=== PATIENT | female | born 1990 | race Caucasian/White ===

== ENCOUNTER → 2016-11-29 | Outpatient (CLI) | payer BC ==
[~2016-11-29] MED LIST: HMLI7525 SC; IBUP-1050 PO; INSU1INJ SC; PREN1TAB29
== END | disposition home or self-care (01) ==
LOC: C.LAB1850 17:16
PROVIDERS: ATTEND Obstetrics & Gynecology
DX: Z32.01 Encounter for pregnancy test, result positive (principal)

== ENCOUNTER → 2016-12-01 | Outpatient (CLI) | payer BC | END | disposition home or self-care (01) | LOC: C.LAB 17:51 | PROVIDERS: ATTEND Obstetrics & Gynecology | DX: O09.00 Supervision of pregnancy with history of infertility, unspecified trimester (principal) ==

== ENCOUNTER → 2016-12-17 | Outpatient (CLI) | payer BC ==
[2016-12-17 14:42] LABS: URINE APPEARANCE TURBID (CLEAR); URINE BILIRUBIN NEG (NEG); URINE COLOR DK YELLOW; URINE EPITHELIAL CELL AUTO >30 /lpf (0-5); URINE NITRITE NEG (NEG); URINE SPECIFIC GRAVITY 1.031 (1.000-1.030); UROBILINOGEN NEG (NEG)
[2016-12-17 14:45] LABS: MANUAL MICROSCOPIC REQUIRED? NO; REVIEW REQ? NO
== END | disposition home or self-care (01) ==
LOC: C.LABSPEC 13:37
PROVIDERS: ATTEND Obstetrics & Gynecology
DX: O24.419 Gestational diabetes mellitus in pregnancy, unspecified control (principal); Z3A.00 Weeks of gestation of pregnancy not specified

== ENCOUNTER → 2016-12-24 | Outpatient (CLI) | payer BC | END | disposition home or self-care (01) | LOC: C.PAPS 16:42 | PROVIDERS: ATTEND Obstetrics & Gynecology | DX: Z01.419 Encounter for gynecological examination (general) (routine) without abnormal findings (principal) ==

== ENCOUNTER → 2016-12-24 | Outpatient (CLI) | payer BC ==
[2016-12-28 09:32] LABS: CHLAMYDIA TRACH RNA*** NOT DETECTED (NOT DETECTED); GC (NEIS GONORRHOEAE)RNA** NOT DETECTED (NOT DETECTED)
== END | disposition home or self-care (01) ==
LOC: C.LABSPEC 10:16
PROVIDERS: ATTEND Obstetrics & Gynecology
DX: O09.00 Supervision of pregnancy with history of infertility, unspecified trimester (principal); Z3A.00 Weeks of gestation of pregnancy not specified

== ENCOUNTER → 2017-01-07 | Outpatient (CLI) | payer BC ==
[2017-01-07 09:47] LABS: BASO % 0.1 %; BASO ABS # 0.01 K/uL (0-0.2); COMPLETE YES; EOS % 0.1 %; IG% 0.2 %; LYMPH % 33.4 %; LYMPH ABS # 2.95 K/uL (1.2-3.4); MEAN CORPUSCULAR HEMOGLOBIN 27.4 pg (25-34); MEAN CORPUSCULAR HGB CONC 34.3 g/dl (32-36); MEAN PLATELET VOLUME 10.3 fL (7.4-10.4); MONO % 6.1 %; NEUT % 60.1 %; PLATELET COUNT 134 K/uL (130-400); WHITE BLOOD COUNT 8.84 K/uL (4.8-10.8)
== END | disposition home or self-care (01) ==
LOC: C.LAB1850 08:09
PROVIDERS: ATTEND Obstetrics & Gynecology
DX: O09.00 Supervision of pregnancy with history of infertility, unspecified trimester (principal)

== ENCOUNTER → 2017-03-28 | Outpatient (CLI) | payer BC ==
[2017-03-28 16:45] LABS: URINE APPEARANCE CLOUDY (CLEAR); URINE BILIRUBIN NEG (NEG); URINE COLOR DK YELLOW; URINE NITRITE NEG (NEG); URINE PH 6.5 (4.5-7.5); URINE SPECIFIC GRAVITY 1.027 (1.000-1.030); UROBILINOGEN NEG (NEG)
[2017-03-28 16:47] LABS: MANUAL MICROSCOPIC REQUIRED? NO; REVIEW REQ? YES
== END | disposition home or self-care (01) ==
LOC: C.LAB1850 15:57
PROVIDERS: ATTEND Obstetrics & Gynecology
DX: R39.9 Unspecified symptoms and signs involving the genitourinary system (principal)

== ENCOUNTER → 2017-05-13 | Outpatient (CLI) | payer BC ==
[2017-05-13 16:32] LABS: HEMATOCRIT 37.6 % (37-47)
[2017-05-13 16:40] LABS: URINE APPEARANCE CLEAR (CLEAR); URINE BILIRUBIN NEG (NEG); URINE COLOR DK YELLOW; URINE EPITHELIAL CELL AUTO >30 /lpf (0-5); URINE NITRITE NEG (NEG); URINE PH 6.5 (4.5-7.5); URINE SPECIFIC GRAVITY 1.023 (1.000-1.030); UROBILINOGEN NEG (NEG)
[2017-05-13 16:47] LABS: MANUAL MICROSCOPIC REQUIRED? NO; REVIEW REQ? NO
== END | disposition home or self-care (01) ==
LOC: C.LAB1850 15:27
PROVIDERS: ATTEND Obstetrics & Gynecology
DX: Z34.82 Encounter for supervision of other normal pregnancy, second trimester (principal)

== ENCOUNTER → 2017-07-08 | Outpatient (CLI) | payer BC | END | disposition home or self-care (01) | LOC: C.LABSPEC 10:58 | PROVIDERS: ATTEND Obstetrics & Gynecology | DX: O24.410 Gestational diabetes mellitus in pregnancy, diet controlled (principal) ==

== ENCOUNTER 2017-07-10 02:05 | Outpatient (CLI) | payer BC ==
[~2017-07-10] VITALS: Ht 165.1 cm; Wt 127.3 kg
[~2017-07-10 02:05] MED LIST changes: -HMLI7525 SC; -INSU1INJ SC; -PREN1TAB29
[2017-07-10 03:12] VITALS: Ht 165.1 cm; Wt 127.3 kg
[2017-07-10] MEDS ORDERED: PREN1TAB29 (03:13)
[2017-07-10] MEDS ORDERED: HMLI7525 SC (03:17)
[2017-07-10] MEDS ORDERED: INSU1INJ SC (03:17)
== END 2017-07-10 04:12 | disposition home or self-care (01) ==
LOC: C.LD 02:05 → C.OPB 02:05
PROVIDERS: ATTEND Obstetrics & Gynecology
DX: O26.893 Other specified pregnancy related conditions, third trimester (principal); R10.9 Unspecified abdominal pain; Z3A.36 36 weeks gestation of pregnancy

== ENCOUNTER → 2017-07-15 | Outpatient (CLI) | payer BC ==
[~2017-07-15] MED LIST changes: +HMLI7525 SC; -IBUP-1050 PO; +INSU1INJ SC; +PREN1TAB29
[2017-07-15 10:38] LABS: CHOLESTEROL/HDL RATIO 3.8
== END | disposition home or self-care (01) ==
LOC: C.LAB1850 09:02
PROVIDERS: ATTEND Nurse Practitioner
DX: Z13.220 Encounter for screening for lipoid disorders (principal)

== ENCOUNTER 2017-07-29 11:33 | Inpatient (IN) | payer BC ==
[~2017-07-29] VITALS: Ht 165.1 cm; Wt 129.5 kg
[2017-07-29] MEDS ORDERED: SODIUM CHLORIDE 0.9% 1000ML 1,000 ML IV SCH (11:39)
[2017-07-29] MEDS ORDERED: LACTATED RINGER'S 1000ML 1,000 ML IV PRN (11:39)
[2017-07-29] MEDS ORDERED: DEXTROSE 50% 50 ML SYR IV PRN ×2 (11:45→12:15)
[2017-07-29] MEDS ORDERED: LACTATED RINGER'S 1000ML 500 ML IV PRN ×2 (11:47→20:50)
[2017-07-29] MEDS ORDERED: LABETALOL HCL IV 5 MG/ML 20ML IV SCH (12:00)
[2017-07-29] MEDS ORDERED: OXYTOCIN 30 UNITS/500ML NSS IV PRN (12:00)
[2017-07-29 12:14] LABS: HEMATOCRIT 37.3 % (37-47); MEAN CELL VOLUME 81.3 fL (80-100); MEAN CORPUSCULAR HEMOGLOBIN 27.2 pg (25-34); MEAN CORPUSCULAR HGB CONC 33.5 g/dl (32-36); MEAN PLATELET VOLUME 11.5 fL (7.4-10.4); PLATELET COUNT 135 K/uL (130-400); RED BLOOD COUNT 4.59 M/uL (4.2-5.4); WHITE BLOOD COUNT 10.15 K/uL (4.8-10.8)
[2017-07-29] MEDS ORDERED: GLUCOSE 40% GEL 15 GM TUBE PO PRN (12:15)
[2017-07-29] MEDS ORDERED: GLUCAGON FOR INJ 1 MG VIAL SQ PRN (12:15)
[2017-07-29] MEDS ORDERED: GLUCOSE 10 TABS/TUBE PO PRN (12:15)
[2017-07-29] MEDS ORDERED: INSULIN REGULAR 250 UNITS in SODIUM CHLORIDE 0.9% 250ML 250 ML IV SCH (12:30)
[2017-07-29 12:42] LABS: ALT/SGPT 11 U/L (12-78); BLOOD UREA NITROGEN 7 mg/dl (7-18); CALCIUM 8.9 mg/dl (8.5-10.1); CARBON DIOXIDE 22 mmol/L (21-32); CHLORIDE 107 mmol/L (98-107); CREATININE 0.53 mg/dl (0.60-1.20); GLUCOSE 82 mg/dl (70-99); SODIUM 138 mmol/L (136-145)
[2017-07-29 12:45] LABS: ALB/GLOB RATIO 0.7 (0.9-2); ALKALINE PHOSPHATASE 154 U/L (45-117); AST/SGOT 10 U/L (15-37)
[2017-07-29] MEDS ORDERED: LABETALOL HCL IV 5 MG/ML 20ML IV PRN (12:45)
[2017-07-29] MEDS: DEXTROSE 5% 1000ML 1,000 ML IV SCH ×2 (12:58→23:43)
[2017-07-29] MEDS ORDERED: MAGNESIUM SULFATE 4GM / WTR 100ML IV ONE (13:15)
[2017-07-29] MEDS ORDERED: NURSING VERBAL MED ORDER ONE (13:15)
[2017-07-29] MEDS: LACTATED RINGER'S 1000ML 1,000 ML IV SCH ×2 (13:25→17:23)
[2017-07-29] MEDS ORDERED: LABETALOL HCL IV 5 MG/ML 20ML IV STA (13:36)
[2017-07-29] MEDS: MAGNESIUM SULFATE / WTR 1,000 ML IV SCH (13:44)
[2017-07-29 14:57] VITALS: Ht 165.1 cm; Wt 129.5 kg
[2017-07-29] MEDS ORDERED: INFLUENZA VIRUS QUAD VACCINE 0.5 ML SYR IM. ONE (15:45)
[2017-07-29] MEDS ORDERED: INFLUENZA ADMINISTRATION CHARGE ONE (15:45)
[2017-07-29 18:32] LABS: HEMATOCRIT 37.5 % (37-47); IG% 0.4 %; LYMPH % 25.4 %; LYMPH ABS # 2.79 K/uL (1.2-3.4); MEAN CELL VOLUME 81.2 fL (80-100); MEAN CORPUSCULAR HEMOGLOBIN 26.8 pg (25-34); MONO % 5.3 %; NEUT % 68.9 %; PLATELET COUNT 139 K/uL (130-400); RED BLOOD COUNT 4.62 M/uL (4.2-5.4); WHITE BLOOD COUNT 10.99 K/uL (4.8-10.8)
[2017-07-29 18:34] LABS: COMPLETE YES; MEAN CORPUSCULAR HGB CONC 33.1 g/dl (32-36)
[2017-07-29 19:04] LABS: ALB/GLOB RATIO 0.6 (0.9-2); BUN/CREATININE RATIO 10.5 (10-20); CALCIUM 8.6 mg/dl (8.5-10.1); CREATININE 0.55 mg/dl (0.60-1.20); MAGNESIUM THERAPEUTIC(L&DONLY) 3.7 mg/dl (1.8-2.4); POTASSIUM 3.6 mmol/L (3.5-5.1); URIC ACID 6.5 mg/dl (2.6-7.2)
[2017-07-29] MEDS ORDERED: FENTANYL 2MCG/ML ROPIV 1.25MG/ML 100ML BAG EPI ONE (20:15)
[2017-07-29] MEDS ORDERED: FENTANYL CITRATE INJ 50 MCG/1 ML 2 ML VIAL ONE (20:15)
[2017-07-29] MEDS ORDERED: EpHEDrine SULFATE INJ 50 MG/ML AMP ONE (20:15)
[2017-07-29] MEDS ORDERED: BUPIVACAINE 0.25% 30 ML VIAL ONE (20:15)
[2017-07-29] MEDS ORDERED: NALOXONE HCL INJ 1 MG in SODIUM CHLORIDE 0.9% 1000ML 1,000 ML IV PRN (20:50)
[2017-07-29] MEDS ORDERED: NALBUPHINE HCL INJ 10 MG/ML AMP IV PRN (21:00)
[2017-07-29] MEDS ORDERED: DiphenhydrAMINE HCL 50 MG/ML VIAL IV PRN (21:00)
[2017-07-29] MEDS ORDERED: EpHEDrine SULFATE INJ 50 MG/ML AMP IV PRN (21:00)
[2017-07-29] MEDS ORDERED: ONDANSETRON INJ 2 MG/ML 2 ML VIAL IV PRN (21:00)
[2017-07-29] MEDS ORDERED: NALOXONE HCL INJ 0.4 MG/1 ML VIAL/CARP IV PRN (21:00)
[2017-07-29] MEDS ORDERED: FENTANYL 2MCG/ML ROPIV 1.25MG/ML 100ML BAG EPI PRN (21:00)
[2017-07-30 00:20] LABS: BASO % 0.1 %; BASO ABS # 0.01 K/uL (0-0.2); EOS % 0.1 %; IG% 0.3 %; LYMPH % 22.5 %; MEAN CELL VOLUME 80.3 fL (80-100); MEAN CORPUSCULAR HEMOGLOBIN 27.8 pg (25-34); MEAN PLATELET VOLUME 11.4 fL (7.4-10.4); MONO % 6.2 %; NEUT % 70.8 %; PLATELET COUNT 132 K/uL (130-400); RED BLOOD COUNT 4.36 M/uL (4.2-5.4)
[2017-07-30 00:35] LABS: COMPLETE YES; MEAN CORPUSCULAR HGB CONC 34.6 g/dl (32-36)
[2017-07-30 00:49] LABS: ALB/GLOB RATIO 0.7 (0.9-2); BUN/CREATININE RATIO 9.4 (10-20); CREATININE 0.61 mg/dl (0.60-1.20); URIC ACID 6.5 mg/dl (2.6-7.2)
[2017-07-30] MEDS ORDERED: NURSING VERBAL MED ORDER ONE ×2 (01:15→21:00)
[2017-07-30] MEDS ORDERED: CARBOPROST TROMETHAMINE 250 MCG/ML AMP ONE (01:54)
[2017-07-30] MEDS ORDERED: CARBOPROST TROMETHAMINE 250 MCG/ML AMP IM ONE (02:15)
[2017-07-30] MEDS ORDERED: OXYTOCIN 30 UNITS/500ML NSS IV PRN (02:15)
[2017-07-30] MEDS ORDERED: LANOLIN OINT EXT PRN ×2 (02:15)
[2017-07-30] MEDS ORDERED: HYDROCORTISONE ACETATE 25 MG SUPP PR PRN (02:15)
[2017-07-30] MEDS ORDERED: BENZOCAINE 20% AER SPR 82.5 GM CAN EXT PRN (02:15)
[2017-07-30] MEDS ORDERED: SUPERCREAM 0.870 % 15GM JAR EXT PRN (02:15)
--- NOTE | 2017-07-30 04:35 | DELIVERY SUMMARY ---
DATE OF OPERATION: 07/30/2017 PROCEDURE: Spontaneous vaginal delivery. FINDINGS: Viable female . Apgars 7 and 8. Weight pending. Please see nursery record. DIAGNOSES: 1. A 27-year-old 2, para 1-0-0-1, at 39 weeks 1 day. 2. GDMA2. 3. Preeclampsia with severe features. 4. History of preeclampsia in prior . 5. Fatty liver disease. 6. Polycystic ovary syndrome. POSTDELIVERY DIAGNOSES: Same. ESTIMATED BLOOD LOSS: 300 mL. DESCRIPTION OF PROCEDURE: The patient progressed to complete with epidural anesthesia. She then began to push. She then spontaneously vaginally delivered viable female from the cephalic presentation. The baby delivered in the left occiput anterior position. Head then restituted to right occiput anterior position. Nuchal cord x1 was noted and easily reduced. The anterior shoulder was delivered followed by the posterior shoulder followed by the body. Baby was placed on mother's abdomen. A large amount of meconium stained fluid was noted. The cord was doubly clamped and cut. A cord segment was obtained for gases. Cord blood was obtained. Placenta then delivered spontaneously intact with a 3-vessel cord. The uterus and vagina were swept of all clots and debris. Multiple pieces of membranes were removed from the uterus. Pitocin was given and the uterus began to become firm, however, the uterus was still atonic, therefore a dose of Hemabate was given. Uterus did become firm. Cervix, vagina and perineum were inspected and a first degree perineal laceration was repaired with 3-0 Vicryl. The patient and baby tolerated delivery well and are recovering in the room in stable and good condition. Excellent hemostasis was observed. Sponge and instruments counts were correct x2 at the conclusion of the delivery. I attest to the content of the Intraoperative Record and any orders documented therein. Any exceptions are noted below. MTDD
[2017-07-30] MEDS: IBUPROFEN 600 MG TAB PO PRN ×2 (06:01→17:54)
[2017-07-30 06:26] LABS: HEMATOCRIT 36.6 % (37-47); IG% 0.3 %; LYMPH % 12.7 %; LYMPH ABS # 1.85 K/uL (1.2-3.4); MEAN CORPUSCULAR HEMOGLOBIN 26.5 pg (25-34); MEAN PLATELET VOLUME 11.3 fL (7.4-10.4); MONO % 5.8 %; NEUT % 81.2 %; PLATELET COUNT 131 K/uL (130-400); RED BLOOD COUNT 4.52 M/uL (4.2-5.4); WHITE BLOOD COUNT 14.53 K/uL (4.8-10.8)
[2017-07-30 06:28] LABS: COMPLETE YES; MEAN CORPUSCULAR HGB CONC 32.8 g/dl (32-36)
[2017-07-30] MEDS: MAGNESIUM SULFATE / WTR 1,000 ML IV SCH (06:57)
[2017-07-30 07:09] LABS: ALB/GLOB RATIO 0.7 (0.9-2); BUN/CREATININE RATIO 8.1 (10-20); CALCIUM 7.7 mg/dl (8.5-10.1); CREATININE 0.63 mg/dl (0.60-1.20); POTASSIUM 3.5 mmol/L (3.5-5.1); URIC ACID 6.7 mg/dl (2.6-7.2)
[2017-07-30] MEDS: OXYCODONE/ACETAMINOPHEN 5-325 TAB PO PRN ×2 (07:35→20:04)
[2017-07-30] MEDS: DOCUSATE SODIUM 100 MG CAP PO SCH ×2 (07:36→19:52)
--- NOTE | 2017-07-30 11:46 | Anesthesia Procedure Note ---
Anesthesia Epidural Removal Nt Date & Time Jul 30, 2017 at 11:46 Vital Signs Pain Intensity: 4.0 Notes Mental Status: alert / awake / arousable, participated in evaluation Nausea / Vomiting: adequately controlled Pain: adequately controlled Airway Patency, RR, SpO2: stable & adequate BP & HR: stable & adequate Hydration State: stable & adequate Neuraxial Anesthesia: was administered Anesthetic Complications: no major complications apparent, pt satisfied with anesthetic care Epidural: removed without complications, with tip intact
[2017-07-30 12:30] LABS: BASO % 0.1 %; BASO ABS # 0.01 K/uL (0-0.2); EOS % 0.1 %; HEMATOCRIT 33.5 % (37-47); IG% 0.3 %; LYMPH % 20.2 %; LYMPH ABS # 2.54 K/uL (1.2-3.4); MEAN CELL VOLUME 79.2 fL (80-100); MEAN CORPUSCULAR HEMOGLOBIN 27.2 pg (25-34); MEAN PLATELET VOLUME 11.5 fL (7.4-10.4); MONO % 5.9 %; NEUT % 73.4 %; PLATELET COUNT 135 K/uL (130-400); RED BLOOD COUNT 4.23 M/uL (4.2-5.4); WHITE BLOOD COUNT 12.57 K/uL (4.8-10.8)
[2017-07-30 12:33] LABS: COMPLETE YES; MEAN CORPUSCULAR HGB CONC 34.3 g/dl (32-36)
[2017-07-30 12:50] LABS: BUN/CREATININE RATIO 9.7 (10-20); CALCIUM 7.6 mg/dl (8.5-10.1); CREATININE 0.56 mg/dl (0.60-1.20); POTASSIUM 3.8 mmol/L (3.5-5.1)
[2017-07-30 13:02] LABS: ALB/GLOB RATIO 0.7 (0.9-2); URIC ACID 6.9 mg/dl (2.6-7.2)
[2017-07-30] MEDS: LACTATED RINGER'S 1000ML 1,000 ML IV SCH (17:55)
[2017-07-30 18:10] LABS: BASO % 0.2 %; BASO ABS # 0.02 K/uL (0-0.2); EOS % 0.1 %; HEMATOCRIT 34.5 % (37-47); IG% 0.4 %; LYMPH % 20.6 %; LYMPH ABS # 2.08 K/uL (1.2-3.4); MEAN CORPUSCULAR HEMOGLOBIN 26.7 pg (25-34); MEAN PLATELET VOLUME 10.7 fL (7.4-10.4); MONO % 7.1 %; NEUT % 71.6 %; PLATELET COUNT 124 K/uL (130-400); RED BLOOD COUNT 4.31 M/uL (4.2-5.4); WHITE BLOOD COUNT 10.08 K/uL (4.8-10.8)
[2017-07-30 18:36] LABS: COMPLETE YES; MEAN CORPUSCULAR HGB CONC 33.3 g/dl (32-36)
[2017-07-30 19:00] LABS: ALB/GLOB RATIO 0.7 (0.9-2); BUN/CREATININE RATIO 6.2 (10-20); CALCIUM 7.7 mg/dl (8.5-10.1); CREATININE 0.63 mg/dl (0.60-1.20); POTASSIUM 3.6 mmol/L (3.5-5.1); URIC ACID 6.7 mg/dl (2.6-7.2)
[2017-07-31] VITALS (7 sets, daily range): BP systolic 118–141; BP diastolic 66–84; PULSE 72–85; TEMP 36.5–37.1; O2SAT 97–98
[2017-07-31 00:40] LABS: BASO % 0.1 %; BASO ABS # 0.01 K/uL (0-0.2); EOS % 0.2 %; HEMATOCRIT 32.1 % (37-47); IG% 0.4 %; LYMPH % 33.5 %; LYMPH ABS # 3.11 K/uL (1.2-3.4); MEAN CELL VOLUME 80.7 fL (80-100); MEAN CORPUSCULAR HEMOGLOBIN 26.9 pg (25-34); MEAN PLATELET VOLUME 11.4 fL (7.4-10.4); MONO % 6.2 %; NEUT % 59.6 %; PLATELET COUNT 131 K/uL (130-400); RED BLOOD COUNT 3.98 M/uL (4.2-5.4); WHITE BLOOD COUNT 9.29 K/uL (4.8-10.8)
[2017-07-31 00:42] LABS: COMPLETE YES; MEAN CORPUSCULAR HGB CONC 33.3 g/dl (32-36)
[2017-07-31 01:09] LABS: ALB/GLOB RATIO 0.7 (0.9-2); BUN/CREATININE RATIO 7.1 (10-20); CALCIUM 7.5 mg/dl (8.5-10.1); CREATININE 0.58 mg/dl (0.60-1.20); POTASSIUM 3.5 mmol/L (3.5-5.1); URIC ACID 6.8 mg/dl (2.6-7.2)
[2017-07-31] MEDS: OXYCODONE/ACETAMINOPHEN 5-325 TAB PO PRN ×3 (02:17→23:24)
[2017-07-31 06:32] LABS: BASO % 0.1 %; BASO ABS # 0.01 K/uL (0-0.2); EOS % 0.3 %; HEMATOCRIT 32.4 % (37-47); IG% 0.3 %; LYMPH % 35.6 %; LYMPH ABS # 2.74 K/uL (1.2-3.4); MEAN CELL VOLUME 82.4 fL (80-100); MEAN CORPUSCULAR HEMOGLOBIN 26.5 pg (25-34); MEAN PLATELET VOLUME 11.6 fL (7.4-10.4); MONO % 6.1 %; NEUT % 57.6 %; PLATELET COUNT 130 K/uL (130-400); RED BLOOD COUNT 3.93 M/uL (4.2-5.4)
[2017-07-31 06:39] LABS: COMPLETE YES; MEAN CORPUSCULAR HGB CONC 32.1 g/dl (32-36)
[2017-07-31 07:00] LABS: ALB/GLOB RATIO 0.6 (0.9-2); BUN/CREATININE RATIO 7.3 (10-20); CALCIUM 7.8 mg/dl (8.5-10.1); CREATININE 0.7 mg/dl (0.60-1.20); POTASSIUM 3.5 mmol/L (3.5-5.1); URIC ACID 7.1 mg/dl (2.6-7.2)
--- NOTE | 2017-07-31 08:33 | Progress Note ---
Subjective Jul 31, 2017. Subjective conversation w/ patient, physical exam, lab review Ambulation: ambulating normally Voiding: no voiding problems Passing Gas: Yes Diet Tolerance: Regular Diet Lochia: Small Feeding Type: Breast Feeding Pain: minimal Comment: Feels well, no n/v, no benson, no ruq pain. Objective Vital Signs Date Time Temp Pulse Resp B/P (MAP) Pulse Ox O2 Delivery O2 Flow Rate FiO2 07/31/17 06:07 36.9 75 18 135/66 (89) 98 Room Air 07/31/17 03:00 98 Room Air 07/31/17 03:00 37.1 83 18 141/75 (97) Room Air Physical Exam General Appearance: WELL-APPEARING, WD/WN, NO APPARENT DISTRESS Respiratory/Chest: lungs clear, normal breath sounds Cardiovascular: regular rate, rhythm Abdomen: normal bowel sounds, non tender, soft Fundus: Firm, Non-Tender, Relation to Umbilicus (at u) Extremities: non-tender, normal inspection, no pedal edema Laboratory Results Last 24 Hours Test 07/30/17 12:06 07/30/17 17:57 07/31/17 00:06 07/31/17 05:59 White Blood Count 12.57 K/uL 10.08 K/uL 9.29 K/uL 7.70 K/uL Red Blood Count 4.23 M/uL 4.31 M/uL 3.98 M/uL 3.93 M/uL Hemoglobin 11.5 g/dL 11.5 g/dL 10.7 g/dL 10.4 g/dL Hematocrit 33.5 % 34.5 % 32.1 % 32.4 % Mean Corpuscular Volume 79.2 fL 80.0 fL 80.7 fL 82.4 fL Mean Corpuscular Hemoglobin 27.2 pg 26.7 pg 26.9 pg 26.5 pg Mean Corpuscular Hemoglobin Concent 34.3 g/dl 33.3 g/dl 33.3 g/dl 32.1 g/dl Platelet Count 135 K/uL 124 K/uL 131 K/uL 130 K/uL Mean Platelet Volume 11.5 fL 10.7 fL 11.4 fL 11.6 fL Neutrophils (%) (Auto) 73.4 % 71.6 % 59.6 % 57.6 % Lymphocytes (%) (Auto) 20.2 % 20.6 % 33.5 % 35.6 % Monocytes (%) (Auto) 5.9 % 7.1 % 6.2 % 6.1 % Eosinophils (%) (Auto) 0.1 % 0.1 % 0.2 % 0.3 % Basophils (%) (Auto) 0.1 % 0.2 % 0.1 % 0.1 % Neutrophils # (Auto) 9.23 K/uL 7.21 K/uL 5.53 K/uL 4.44 K/uL Lymphocytes # (Auto) 2.54 K/uL 2.08 K/uL 3.11 K/uL 2.74 K/uL Monocytes # (Auto) 0.74 K/uL 0.72 K/uL 0.58 K/uL 0.47 K/uL Eosinophils # (Auto) 0.01 K/uL 0.01 K/uL 0.02 K/uL 0.02 K/uL Basophils # (Auto) 0.01 K/uL 0.02 K/uL 0.01 K/uL 0.01 K/uL RDW Standard Deviation 41.3 fL 41.5 fL 42.1 fL 43.7 fL RDW Coefficient of Variation 14.3 % 14.3 % 14.4 % 14.5 % Immature Granulocyte % (Auto) 0.3 % 0.4 % 0.4 % 0.3 % Immature Granulocyte # (Auto) 0.04 K/uL 0.04 K/uL 0.04 K/uL 0.02 K/uL Sodium Level 137 mmol/L 139 mmol/L 139 mmol/L 140 mmol/L Potassium Level 3.8 mmol/L 3.6 mmol/L 3.5 mmol/L 3.5 mmol/L Chloride Level 106 mmol/L 106 mmol/L 106 mmol/L 107 mmol/L Carbon Dioxide Level 22 mmol/L 22 mmol/L 23 mmol/L 26 mmol/L Anion Gap 9.0 mmol/L 11.0 mmol/L 10.0 mmol/L 7.0 mmol/L Blood Urea Nitrogen 5 mg/dl 4 mg/dl 4 mg/dl 5 mg/dl Creatinine 0.56 mg/dl 0.63 mg/dl 0.58 mg/dl 0.70 mg/dl Est Creatinine Clear Calc Drug Dose 203.1 ml/min 180.5 ml/min 196.1 ml/min 162.5 ml/min Estimated GFR () 147.1 141.5 145.4 136.7 Estimated GFR (Non- 126.9 122.1 125.4 117.9 BUN/Creatinine Ratio 9.7 6.2 7.1 7.3 Random Glucose 86 mg/dl 114 mg/dl 91 mg/dl 91 mg/dl Uric Acid 6.9 mg/dl 6.7 mg/dl 6.8 mg/dl 7.1 mg/dl Calcium Level 7.6 mg/dl 7.7 mg/dl 7.5 mg/dl 7.8 mg/dl Magnesium Level 5.2 mg/dl 4.8 mg/dl 5.0 mg/dl 3.0 mg/dl Total Bilirubin 0.3 mg/dl 0.3 mg/dl 0.2 mg/dl 0.2 mg/dl Aspartate Amino Transf (AST/SGOT) 16 U/L 16 U/L 14 U/L 15 U/L Alanine Aminotransferase (ALT/SGPT) 15 U/L 13 U/L 15 U/L 14 U/L Alkaline Phosphatase 147 U/L 149 U/L 135 U/L 122 U/L Total Protein 5.9 gm/dl 6.3 gm/dl 5.9 gm/dl 5.8 gm/dl Albumin 2.4 gm/dl 2.5 gm/dl 2.4 gm/dl 2.2 gm/dl Globulin 3.5 gm/dl 3.8 gm/dl 3.5 gm/dl 3.6 gm/dl Albumin/Globulin Ratio 0.7 0.7 0.7 0.6 Assessment and Plan Post- Day#: 1 Continue Routine Care: Doing well. bps better 130-140/70-80, occasional 90. No s/s pet. Monitor today.
[2017-07-31] MEDS: DOCUSATE SODIUM 100 MG CAP PO SCH ×2 (08:38→19:57)
[2017-07-31] MEDS: IBUPROFEN 600 MG TAB PO PRN ×3 (08:39→23:24)
[2017-07-31] MEDS ORDERED: BISACODYL 5 MG TABEC PO SCH (20:00)
[2017-08-01 03:00] VITALS: BP 128/80; PULSE 67; TEMP 36.8; O2SAT 97
--- NOTE | 2017-08-01 05:43 | OB/GYN Progress Note ---
NETWORK SUPPORT Progress Note Date of Service Aug 01, 2017. Subjective conversation w/ patient, physical exam, chart review, lab review Ambulation: ambulating normally Voiding: no voiding problems Passing Gas: Yes Diet Tolerance: Regular Diet Lochia: Small Feeding Type: Breast Feeding Pain: cramping, minimal Notes: Found pt sitting up in bed, smiling, denies any present pains, SOB, leg pain/ swelling, or other acute c/o. Review of Systems Constitutional: No fever, No chills Respiratory: No cough, No shortness of breath Cardiac: No chest pain, No edema Abdomen: No nausea, No vomiting, No diarrhea Female : No dysuria Objective Vital Signs Date Time Temp Pulse Resp B/P (MAP) Pulse Ox O2 Delivery O2 Flow Rate FiO2 08/01/17 03:00 36.8 67 16 128/80 (96) 97 Room Air 07/31/17 23:00 97 Room Air 07/31/17 23:00 36.8 72 18 135/84 (101) 97 Room Air 07/31/17 21:15 36.8 80 18 120/77 (91) 97 Room Air 07/31/17 15:20 36.8 85 18 118/78 (91) Room Air 07/31/17 15:20 Room Air 07/31/17 12:38 36.8 74 18 139/68 (91) Room Air 07/31/17 12:38 Room Air 07/31/17 08:05 Room Air 07/31/17 08:05 36.5 75 18 141/75 (97) Room Air 07/31/17 06:07 36.9 75 18 135/66 (89) 98 Room Air Physical Exam General Appearance: WELL-APPEARING Respiratory/Chest: lungs clear, normal breath sounds, no respiratory distress Cardiovascular: regular rate, rhythm, no edema Abdomen: normal bowel sounds, non tender, soft Fundus: Firm, Non-Tender, Relation to Umbilicus (one down) Extremities: non-tender, no pedal edema, no calf tenderness Laboratory Results Last 24 Hours Test 07/31/17 05:59 White Blood Count 7.70 K/uL Red Blood Count 3.93 M/uL Hemoglobin 10.4 g/dL Hematocrit 32.4 % Mean Corpuscular Volume 82.4 fL Mean Corpuscular Hemoglobin 26.5 pg Mean Corpuscular Hemoglobin Concent 32.1 g/dl Platelet Count 130 K/uL Mean Platelet Volume 11.6 fL Neutrophils (%) (Auto) 57.6 % Lymphocytes (%) (Auto) 35.6 % Monocytes (%) (Auto) 6.1 % Eosinophils (%) (Auto) 0.3 % Basophils (%) (Auto) 0.1 % Neutrophils # (Auto) 4.44 K/uL Lymphocytes # (Auto) 2.74 K/uL Monocytes # (Auto) 0.47 K/uL Eosinophils # (Auto) 0.02 K/uL Basophils # (Auto) 0.01 K/uL RDW Standard Deviation 43.7 fL RDW Coefficient of Variation 14.5 % Immature Granulocyte % (Auto) 0.3 % Immature Granulocyte # (Auto) 0.02 K/uL Sodium Level 140 mmol/L Potassium Level 3.5 mmol/L Chloride Level 107 mmol/L Carbon Dioxide Level 26 mmol/L Anion Gap 7.0 mmol/L Blood Urea Nitrogen 5 mg/dl Creatinine 0.70 mg/dl Est Creatinine Clear Calc Drug Dose 162.5 ml/min Estimated GFR () 136.7 Estimated GFR (Non- 117.9 BUN/Creatinine Ratio 7.3 Random Glucose 91 mg/dl Uric Acid 7.1 mg/dl Calcium Level 7.8 mg/dl Magnesium Level 3.0 mg/dl Total Bilirubin 0.2 mg/dl Aspartate Amino Transf (AST/SGOT) 15 U/L Alanine Aminotransferase (ALT/SGPT) 14 U/L Alkaline Phosphatase 122 U/L Total Protein 5.8 gm/dl Albumin 2.2 gm/dl Globulin 3.6 gm/dl Albumin/Globulin Ratio 0.6 Assessment and Plan Post- Day Number: 2 Continue Routine Care: 27F s/p , now PPD #2. - Blood type A pos. GBS negative. Rubella non-immune. - Vital signs reviewed and stable. - Pain controlled with motrin and percocet. - No leg swelling or tenderness on calf palpation. Encourage ambulation. - Encourage breast feeding. - Hemoglobin pre-delivery 12.5, post-delivery trended & now 10.4. Bleeding has improved. Continue to monitor clinically. - Continue routine post-vaginal delivery care. - Pt agreed with above plan, all current questions answered. Sander Villa MD, PGY1 Trust Evaluation Supervisor Physician Supervision Note: I interviewed and examined the patient. Discussed with Dr. Villa and agree with findings and plan as documented in the note. Any exceptions or clarifications are listed here: Patient doing well. Pressures stable. No s/s of pet. will d/c. Instructions given. f/u in the office end of the week for bp check. Documented By: Marifer Johns Resident Tracking Resident Involvement: Resident Care Provided Care Provided: OB Delivery (ob rounds)
[2017-08-01] MEDS: IBUPROFEN 600 MG TAB PO PRN ×2 (06:38→11:46)
[2017-08-01] MEDS: OXYCODONE/ACETAMINOPHEN 5-325 TAB PO PRN (06:39)
--- NOTE | 2017-08-01 07:17 | Discharge Instructions ---
Discharge Instructions Date of Service Aug 01, 2017. Admission Reason for Admission: Labor Check Discharge Discharge Diagnosis / Problem: Recovery from vaginal delivery Discharge Goals Goal(s): Routine recovery after delivery Medications Continue Dispensed Medications: supercream, dermaplast, tucks, lansinoh Activity Recommendations Activity Limitations: per Instructions/Follow-up section . Instructions / Follow-Up Instructions / Follow-Up Please follow up in the [facility] in one week after discharge for re- check of your blood pressure and follow-up care. ACTIVITY RECOMMENDATIONS: * Gradual return to full activity over the next 2-3 weeks. * No lifting - nothing heavier than baby over the next 2-3 weeks. * Do not engage in vigorous exercise, sexual activity or sports until cleared by your physician. * Do not drive or operate any motorized equipment until cleared by your physician. * You may shower/bathe daily. MEDICATIONS: For discomfort or pain, you may use Acetaminophen (Tylenol), Ibuprofen (Advil), or Naproxen (Aleve) following the package directions. For constipation you may use Colace following the package directions. BREAST CARE: If you are not breast feeding: * Wear a supportive bra 24 hours a day for one to two weeks. * Avoid stimulating your breasts and nipples as much as possible during the first few weeks after delivery. * When taking a shower, have the warm water hit your back, not breasts. * When your breasts feel full, apply ice packs. Usually three to four times a day helps ease the discomfort. * Take a mild pain medication (Tylenol / Motrin) when you are uncomfortable. If breast feeding: * Use breast milk to lubricate nipples. Lansinoh cream may be used for sore nipples. You do not need to remove cream prior to breast feeding. If using a different brand of cream, check the label for directions regarding removal of cream prior to nursing. * Wear a supportive bra. * If having problems with breasts or breast feeding, call a investigations consultant or your health care provider. EPISIOTOMY CARE: After delivery, if you have an episiotomy (stitches), the following steps will ease discomfort and aid healing. * For the first 24 hours after delivery, place ice packs next to your episiotomy to help reduce swelling. * After the first 24 hour-period, sitz baths, either portable or in the tub, are suggested. A shower with a shower arm sprayed over the episiotomy may be comforting. * Rosina care should be done after each voiding and bowel movement. Squirt warm water from a plastic bottle over the perineum (region of the body between the anus and urinary opening) and pat dry. * Use Dermoplast to ease discomfort. Shake container. Happy directly over the episiotomy. Place a Tucks on a clean sanitary pad next to your episiotomy. SPECIAL CARE INSTRUCTIONS: When you are discharged from the hospital, it is important for you to follow the instructions listed below: * During the first week at home, you should be able to care for yourself and your baby. In addition, the usual light household activities are encouraged. * Limit your activities to the way you feel. Do not try to clean the house or move furniture. Be sensible. * If you actively engage in sports and have done so up until the time of your delivery, you may resume these activities as soon as you feel able. This may take up to one month or even longer. Use good judgment. * Continue to take your vitamins for at least six weeks after the of your baby. * Your diet need not be limited unless you were on a special diet before your delivery. Breast-feeding mothers need around 2500 calories per day and at least 64-80 ounces of fluid per day (8 to 10 glasses). * You should eat foods from the four major food groups. Crash diets or fad diets are to be avoided. Eating lean meats, fresh fruits and vegetables, low-fat dairy products, high fiber foods and a regular exercise program, will help you get back to your pre- weight without putting your health at risk. * Constipation is sometimes a problem after delivery. Take a mild laxative as needed. If breast feeding, Milk of Magnesia is acceptable to use. You may use a suppository or Fleets enema if no episiotomy. * A daily shower or tub bath is suggested. Be sure to thoroughly and gently dry the perineum. * A bloody vaginal discharge will usually continue until around four weeks post . A small amount of bleeding may continue for as long as six weeks. Vaginal discharge changes from the bright red bleeding after delivery to pink then brownish and finally yellowish-pink before becoming white and disappearing. * Bleeding may increase with activity. Your first period may come in 4-8 weeks. If you are breast feeding, your period may be delayed even longer. * [place] (sex) can begin whenever both you and your partner feel comfortable and do not have any form of genital infection. It is recommended that you wait at least six weeks for internal and external healing to occur. If you have questions, please talk to your health care practitioner. A condom should be used to prevent infection and . * Foreplay, gentle intercourse and lubrication is very important the first several times to prevent pain. A water-based lubricant such as K-Y jelly or Astroglide may be used. * If you have RH negative blood and your baby is RH positive, you will receive RHOGAM by injection prior to discharge. The nurse will give you a card to keep with you that has the date and place that you received RHOGAM after delivery. * During your care, you had a Rubella screen done to check for the presence of rubella antibodies in your blood. If your test was negative, you will receive a Rubella vaccine prior to discharge. This vaccine may cause a fever, soreness at the injection site and flu-like symptoms. If these symptoms persist, notify your health care practitioner. is not advised for one month after a Rubella vaccine. * Verbalizes understanding of car seat law as reviewed with patient nursing. * Car Seat hand-out given and reviewed with patient by nursing. * Shaken baby information reviewed with patient by nursing. Call you doctor if: * Heavy bleeding (saturating several pads an hour) or passing clots the size of your fist. * A fever >101 degrees F (38.3 degrees C) on two occasions four hours apart and /or chills. * Unusual pain in the pelvic or vaginal areas. * "Baby Blues" lasting longer than two weeks. If you have any questions or concerns, call your health care practitioner at . FOLLOW UP VISIT: * Please call the office at to schedule a 6 week examination. It is important you keep this appointment. It is important for you to make arrangements for either yearly or twice yearly check-ups thereafter. Current Hospital Diet Patient's current hospital diet: Regular OB Diet Discharge Diet Recommended Diet: Regular OB Diet Pending Studies Studies pending at discharge: no Laboratory Results Lipid Panel Test 07/15/17 09:06 Range/Units Triglycerides Level 220 H 0-150 mg/dl Cholesterol Level 188 0-200 mg/dl HDL Cholesterol 50 mg/dl Cholesterol/HDL Ratio 3.8 LDL Cholesterol, Calculated 94 mg/dl Medical Emergencies . Who to Call and When: Medical Emergencies: If at any time you feel your situation is an emergency, please call 911 immediately. . Non-Emergent Contact Non-Emergency issues call your: [employer] . . "Provider Documentation" section prepared by Sander Villa. . VTE Core Measure Inpt VTE Proph given/why not?: Treatment not indicated
[2017-08-01 07:24] VITALS: BP 140/84; PULSE 76; TEMP 37; O2SAT 98
[2017-08-01] MEDS: DOCUSATE SODIUM 100 MG CAP PO SCH (08:15)
[2017-08-01] MEDS ORDERED: MEASLES, MUMPS & RUBELLA VIRUS VIAL SQ. ONE (09:30)
[2017-08-01] MEDS ORDERED: NURSING VERBAL MED ORDER ONE (09:30)
[2017-08-01 14:45] VITALS: BP 135/83; PULSE 74; TEMP 36.9; O2SAT 97
[2017-08-01 17:41] VITALS: BP_DIAS 83; PULSE 74; TEMP 36.9
== END 2017-08-01 17:40 | disposition home or self-care (01) | DRG 775 ==
LOC: C.OPB 11:33 → C.LD 11:34 → C.OPB 11:47 → C.OBG 07-31 14:54
PROVIDERS: ADMIT Obstetrics & Gynecology; ATTEND Obstetrics & Gynecology
PROC: 10E0XZZ Delivery of Products of Conception, External Approach (ICD-10-PCS; principal; 2017-07-30)
PROC: 0HQ9XZZ Repair Perineum Skin, External Approach (ICD-10-PCS; principal; 2017-07-30)
DX: O14.14 Severe pre-eclampsia complicating childbirth (principal); O99.284 Endocrine, nutritional and metabolic diseases complicating childbirth; O26.62 Liver and biliary tract disorders in childbirth; O70.0 First degree perineal laceration during delivery; K76.0 Fatty (change of) liver, not elsewhere classified; E28.2 Polycystic ovarian syndrome; Z37.0 Single live birth; Z3A.39 39 weeks gestation of pregnancy

== ENCOUNTER 2019-04-23 05:07 | Observation (INO) ==
--- NOTE | 2019-04-18 10:28 | Anesthesiology Consultation ---
Date of Service April 18, 2019 Assessment & Plan (1) Encounter for pre-operative examination: Chart Review Chart Review: Acceptable Risk for Surgery and Patient NOT seen in Pre Admission Testing Consults Requested none History Surgery Operation Date: 04/23/19 07:00 Proposed Procedures p Laparoscopic Cholecystectomy - Jesse Jaquez MD, FACS Height/Weight Height: 5 ft 5 in Weight: 124.738 kg Allergies Allergy/AdvReac Type Severity Reaction Status Date / Time No Known Allergies Allergy NONE Verified 04/05/19 09:54 Medications Home Medications Medication Instructions Recorded Confirmed Last Taken multivitamin 1 tab PO DAILY 01/08/19 04/17/19 02/19/19 omeprazole 40 mg PO QAM 04/05/19 04/17/19 Unknown oxycodone 5 mg tablet PO .TAKE 1 TABLET EVERY #12 tab 04/17/19 04/17/19 Unknown Past Medical History Medical History Morbid obesity with BMI of 45.0-49.9, adult Fatty liver Gallbladder attack PCOS (polycystic ovarian syndrome) Temporomandibular joint disorder Past Family History Family History Mother History of anesthesia reaction PONV Father Family history of diabetes mellitus Mother Family history of diabetes mellitus Past Surgical History Surgical History History of esophagogastroduodenoscopy (EGD) History of wisdom tooth extraction Social History Smoking Status: Never smoker Do You Dip or Chew Tobacco: No Hx Alcohol Use: No Hx Substance Use: No substance use type: does not use Testing Laboratory Results WBC: 11.4 H/H: 13.5/40.5 PLATELETS: 148 SODIUM: 139 POTASSIUM: 3.6 CHLORIDE: 106 CO2: 28 BUN: 10 CREATININE: 0.79 GLUCOSE: 110 Electrocardiogram Date: 01/08/19 Findings: + NSR @ (sinus arrhythmia), + NSST changes (nonspecific t waves now in anterior leads) and + T wave inversion (t-wave inversion replace nonspecific t- waves in inferior leads compare to previous ECG)
[2019-04-23] MEDS ORDERED: cefUROXime 1,500 MG in DEXTROSE 5% 100 ML IV SCH (06:00)
[2019-04-23] MEDS ORDERED: LR 15ML/HR IV SCH (06:00)
[2019-04-23] MEDS ORDERED: BUPIVACAINE 0.5 % 5 MG/1 ML MPF 30ML VIAL ONE (06:35)
[2019-04-23] MEDS ORDERED: SCOPOLAMINE 1.5 MG TDSY ONE (06:43)
--- NOTE | 2019-04-23 06:43 | History & Physical Bridge Note ---
Date of Service April 23, 2019 History & Physical Bridge Note I have examined the patient, reviewed the History & Physical and in the interval since the performance of the History & Physical I have noted the following changes of clinical significance: no changes noted
[2019-04-23] MEDS ORDERED: SCOPOLAMINE 1.5 MG TDSY TD SCH (06:45)
[2019-04-23] MEDS ORDERED: PROPOFOL IV EMULSION 10 MG/ML 20 ML VIAL IV ONE (06:48)
[2019-04-23] MEDS ORDERED: LIDOCAINE HCL 2% 2 ML VIAL/AMP(20MG/ML) INFIL ONE (06:48)
[2019-04-23] MEDS ORDERED: ROCURONIUM BROMIDE 10 MG/ML 5 ML VIAL ONE (06:48)
[2019-04-23] MEDS ORDERED: MIDAZOLAM HCL 1 MG/ML 2ML VIAL ONE (06:49)
[2019-04-23] MEDS ORDERED: fentaNYL citrate 100 MCG/2 ML VIAL ONE ×2 (06:50→07:42)
[2019-04-23] MEDS ORDERED: ONDANSETRON INJ 2 MG/ML 2 ML VIAL IV PRN ×2 (07:25→09:24)
[2019-04-23] MEDS ORDERED: ePHEDrine sulfate 50 MG/ML AMP IV PRN (07:25)
[2019-04-23] MEDS ORDERED: fentaNYL citrate 100 MCG/2 ML VIAL IV PRN (07:25)
[2019-04-23] MEDS ORDERED: PROMETHAZINE HCL 12.5 MG in SODIUM CHLORIDE 0.9% 50 ML IV PRN ×2 (07:25→09:24)
[2019-04-23] MEDS ORDERED: ATROPINE SULFATE 0.1 MG/ML 10ML SYR IV PRN (07:25)
[2019-04-23] MEDS ORDERED: DEXAMETHASONE SOD INJ 4 MG/ML VIAL ONE (07:37)
[2019-04-23] MEDS ORDERED: ONDANSETRON INJ 2 MG/ML 2 ML VIAL ONE ×2 (07:37→07:56)
[2019-04-23] MEDS ORDERED: GLYCOPYRROLATE 0.2 MG/ML VIAL ONE (07:56)
[2019-04-23] MEDS ORDERED: NEOSTIGMINE METHYLSULFATE 5 MG/5 ML SYR ONE (07:56)
[2019-04-23] MEDS ORDERED: CHECK SCOPOLAMINE PATCH PLACEMENT SCH (08:00)
[2019-04-23] MEDS ORDERED: ACETAMINOPHEN 1,000 MG/100 ML VIAL IV ONE (08:01)
--- NOTE | 2019-04-23 08:01 | Operative Report ---
Post Operative Report Pre & Post Diagnosis Operation Date: 04/23/19 07:00 Pre-Op Diagnosis: Cholecystitis and Cholelithiasis Post-Op Diagnosis: Cholecystitis and Cholelithiasis Procedure Operation Date: 04/23/19 07:00 Actual Procedures p Laparoscopic Cholecystectomy(Not Applicable) - Jesse Jaquez MD, FACS Surgeon Jesse Jaquez MD, FACS Paster Supervisor nurses, resident Estimated Blood Loss 10 Findings Consistent with Post-Op Diagnosis Specimens gallbladder Description of Procedure see dictation I attest to the content of the Intraoperative Record and any orders documented therein. Any exceptions are noted below.
--- NOTE | 2019-04-23 08:52 | Anesthesiology Progress Note ---
Date of Service April 23, 2019 Anesthesia Post Procedure Vital Signs Vital Signs: Temp Pulse Resp BP Pulse Ox 04/23/19 08:40 63 21 145/87 H 95 04/23/19 08:30 79 21 141/94 H 99 04/23/19 08:20 75 21 165/91 H 98 04/23/19 08:11 36.1 C L 91 H 23 169/99 H 96 04/23/19 05:34 36.8 C 79 16 145/79 H 97 Transfer of Care Handoff Completed per policy Notes Mental Status: alert / awake / arousable and participated in evaluation Patient Amnestic to Procedure: Yes Nausea / Vomiting: improving with treatment Pain: adequately controlled Airway Patency, RR, SpO2: stable & adequate BP & HR: stable & adequate Hydration State: stable & adequate Anesthetic Complications: no major complications apparent and Pt Satisfied with anesthetic care
[2019-04-23] MEDS ORDERED: HYDROCODONE/ACETAMOPHEN 5/325MG TAB PO PRN (09:24)
[2019-04-23] MEDS ORDERED: ACETAMINOPHEN 325 MG TAB PO PRN (09:24)
[2019-04-23] MEDS ORDERED: LACTATED RINGER'S 1,000 ML IV SCH (09:24)
[2019-04-23] MEDS ORDERED: IBUPROFEN 600 MG TAB PO PRN (09:24)
[2019-04-23] MEDS ORDERED: MoRPHine SULFATE 2 MG/ML CARP IV PRN (09:24)
[2019-04-23] MEDS ORDERED: PROMETHAZINE HCL 25 MG in SODIUM CHLORIDE 0.9% 50 ML IV PRN (09:24)
--- NOTE | 2019-04-23 09:54 | Operative Report ---
DATE OF OPERATION: 04/23/2019 NAME OF OPERATION: Laparoscopic cholecystectomy. PREOPERATIVE DIAGNOSIS: Biliary colic with cholelithiasis. POSTOPERATIVE DIAGNOSIS: Biliary colic with cholelithiasis with chronic cholecystitis. STAFF SURGEON: Jesse Jaquez MD CRUDE OIL DRIVER: Nurses. ANESTHESIA: General. DESCRIPTION OF PROCEDURE: The patient was brought in the operating room and placed on the operating table in supine position. Her abdomen was prepped and draped in usual fashion. She was morbidly obese. After appropriate anesthetic and prepping and draping, using 0.5% plain Marcaine to anesthetize all the skin incisions, an incision was made above the umbilicus, carrying dissection down very deep through adipose tissue to the fascia. With some difficulty, the fascia was reflected, a Veress needle placed. Pneumoperitoneum was produced. An 11 mm port was placed at this level. Then under visualization, three 5 mm ports were placed again with some difficulty secondary to the patient's morbid obesity. At this point, the gallbladder was grasped and retracted. She had significant fatty liver. Dissection was carried out at the kush hepatis, identifying the cystic duct and cystic artery. These were clipped and transected and the gallbladder dissected away from the liver bed in the usual fashion. I did decompress the gallbladder of bile. Gallbladder was placed in an Endobag. After appropriate hemostasis and irrigation, the Endobag was removed through the umbilical site. All ports then removed. The fascia at the umbilicus closed using 0 Vicryl suture, then the skin reapproximated using interrupted 5-0 Prolene suture. Dressings applied and the patient transferred to recovery room in stable condition. I attest to the content of the Intraoperative Record and any orders documented therein. Any exception s are noted below.
[2019-04-23] MEDS: HYDROCODONE/ACETAMOPHEN 5/325MG TAB PO PRN ×3 (09:58→21:49)
[2019-04-23] MEDS: PANTOprazole 40 MG TAB PO SCH (10:12)
[2019-04-24] MEDS: HYDROCODONE/ACETAMOPHEN 5/325MG TAB PO PRN (01:56)
--- NOTE | 2019-04-24 07:11 | Communication Note ---
Patient discharged within 24 hours of admission. Medical consult routine not completed as patient was discharged prior to being seen.
--- NOTE | 2019-04-24 07:19 | Discharge Summary ---
PRINCIPAL DIAGNOSIS: Biliary colic. PROCEDURES: The patient underwent laparoscopic cholecystectomy. HISTORY OF PRESENT ILLNESS AND HOSPITAL COURSE: The patient is a 28-year-old female who has had recurrent right upper quadrant abdominal pain, brought into the hospital for definitive gallbladder surgery. She was taken to the operating room on 04/23/2019 where she underwent laparoscopic cholecystectomy, which she tolerated very well and has done well overnight and is felt stable for discharge home today to be followed in the surgical clinic next week.
[2019-04-24] MEDS: PANTOprazole 40 MG TAB PO SCH (07:59)
--- NOTE | 2019-04-24 08:09 | Anesthesiology Progress Note ---
Date of Service April 24, 2019 Anesthesia Post Procedure Vital Signs Vital Signs: Temp Pulse Pulse Pulse Resp BP BP 04/24/19 03:16 36.9 C 65 16 142/75 H 04/23/19 23:14 36.9 C 56 L 16 123/76 04/23/19 19:12 36.7 C 70 16 138/74 04/23/19 15:13 37.0 C 71 18 135/77 04/23/19 12:00 36.9 C 83 18 04/23/19 11:10 66 15 04/23/19 10:18 64 18 04/23/19 09:36 62 15 04/23/19 09:10 37.4 C 63 18 04/23/19 08:50 36.2 C L 68 23 151/82 H 04/23/19 08:40 63 21 145/87 H 04/23/19 08:30 79 21 141/94 H 04/23/19 08:20 75 21 165/91 H 04/23/19 08:11 36.1 C L 91 H 23 169/99 H BP Pulse Ox 04/24/19 03:16 95 04/23/19 23:14 92 04/23/19 19:12 93 04/23/19 15:13 96 04/23/19 12:00 125/72 94 04/23/19 11:10 128/74 93 04/23/19 10:18 138/82 95 04/23/19 09:36 134/78 93 04/23/19 09:10 158/79 H 92 04/23/19 08:50 96 04/23/19 08:40 95 04/23/19 08:30 99 04/23/19 08:20 98 04/23/19 08:11 96 Pain Intensity Abdomen: Pain Intensity: 3 Notes Mental Status: alert / awake / arousable Patient Amnestic to Procedure: Yes Nausea / Vomiting: adequately controlled Pain: adequately controlled Airway Patency, RR, SpO2: stable & adequate BP & HR: stable & adequate Hydration State: stable & adequate Anesthetic Complications: no major complications apparent and Pt Satisfied with anesthetic care
== END 2019-04-24 11:55 | disposition home or self-care (01) ==
LOC: ASU 05:07 → 3W 05:07